=== PATIENT | male | born 1980 | race Caucasian/White ===

== ENCOUNTER 2019-02-06 11:48 | Day surgery (SDC) | payer OTHER ==
[2019-02-06] VITALS (10 sets, daily range): BP systolic 126–146; BP diastolic 53–80; PULSE 54–69; TEMP 97.7–98.4
[~2019-02-06] VITALS: Ht 172.7 cm; Wt 111.7 kg
[2019-02-06] MEDS ORDERED: TYLENOL 325MG325 MG PO (12:23)
[2019-02-06] MEDS ORDERED: COZAAR 50MG50 MG/TAB PO (12:23)
[2019-02-06] MEDS ORDERED: ACIPHEX20 MG PO (12:24)
[2019-02-07] VITALS: BP 146/66; PULSE 60; TEMP 98.3
[2019-02-07 04:00] VITALS: BP 133/71; PULSE 80; TEMP 98.4
[2019-02-07 07:07] VITALS: BP 123/72; PULSE 71; TEMP 97.8
[2019-02-07] MEDS ORDERED: NORCO 325 MG-51 TAB PO (10:21)
[2019-02-07] MEDS ORDERED: COLACE 100100 MG/CAP PO (10:22)
[2019-02-07] MEDS ORDERED: MOTRIN 600600 MG/TAB PO (10:22)
[2019-02-07] MEDS ORDERED: ZOFRAN ODT4 MG PO (10:23)
[2019-02-07 12:16] VITALS: BP 131/82; PULSE 78
== END 2019-02-07 13:35 | disposition home or self-care (01) ==
LOC: SDCO 11:48 → SURG 19:52 → SDCO 02-07 13:35
DX: K44.9 Diaphragmatic hernia without obstruction or gangrene (principal); K21.9 Gastro-esophageal reflux disease without esophagitis; I10 Essential (primary) hypertension; Z98.52 Vasectomy status; Z91.018 Allergy to other foods; Z88.7 Allergy status to serum and vaccine
CPT/HCPCS: OP; J0690; J1100; J1170; J1885; J2250; J2405; J2704; J3010; J7120

== ENCOUNTER → 2019-06-06 | Outpatient (CLI) | payer OTHER ==
[~2019-06-06] MED LIST: ACIPHEX20 MG PO; COLACE 100100 MG/CAP PO; COZAAR 50MG50 MG/TAB PO; MOTRIN 600600 MG/TAB PO; NORCO 325 MG-51 TAB PO; TYLENOL 325MG325 MG PO; ZOFRAN ODT4 MG PO
== END ==
LOC: MHCPAIN 12:42
DX: M47.812 Spondylosis without myelopathy or radiculopathy, cervical region (principal)
CPT/HCPCS: G0463

== ENCOUNTER → 2020-01-14 | Outpatient (CLI) | payer OTHER | LOC: COL.RAD | DX: M89.38 Hypertrophy of bone, other site (principal); M54.16 Radiculopathy, lumbar region ==